=== PATIENT | female | born 1965 | race Caucasian/White ===

== ENCOUNTER 2017-07-02 14:13 | Inpatient (IN) | payer OTHER ==
[~2017-07-02] VITALS: Ht 144.8 cm; Wt 48.9 kg
[2017-08-04] MEDS ORDERED: CRESTOR20 MG PO (11:26)
[2017-08-04] MEDS ORDERED: MASON NATURAL1000 MG PO (11:27)
[2017-08-04] MEDS ORDERED: SYNTHROID0.125 MG/T PO (11:27)
[2017-08-04] MEDS ORDERED: HCTZ 25MG TAB25 MG PO (11:27)
[2017-08-04] MEDS ORDERED: MULTI VITAMINS1 TAB PO (11:27)
[2017-08-04] MEDS ORDERED: NAPROSYN500 MG PO (11:29)
[2017-08-04] MEDS ORDERED: PLAQUENIL 200M200 MG PO (11:30)
[2017-08-05] VITALS (10 sets, daily range): BP systolic 103–154; BP diastolic 64–90; PULSE 58–79; TEMP 97.2–98
[2017-08-05] MEDS ORDERED: VITAMIN D31000 I1 PO (10:57)
[2017-08-05] MEDS ORDERED: CALCIUM CARBON650 M2 PO (10:57)
[2017-08-05] MEDS ORDERED: WOMEN'S DAILY F1 TAB PO (10:57)
[2017-08-05] MEDS ORDERED: VITAMINE200 PO (10:58)
[2017-08-05] MEDS ORDERED: IBU800 M1 PO (10:58)
[2017-08-05] MEDS ORDERED: ARTIFICIAL TEAR15 M7 OP (10:59)
[2017-08-06 01:49] VITALS: BP 149/82; PULSE 64; TEMP 98
[2017-08-06 06:15] VITALS: BP 128/61; PULSE 83; TEMP 98.2
[2017-08-06 07:30] LABS: BASO % 0.2 % (0.0-2.0); GRAN # 12.2 (1.4-6.5); GRAN % 87.4 % (42.2-75.2); LYMPH # 0.8 (1.2-3.4); LYMPH % 5.4 % (20.0-51.0); MEAN CELL VOLUME 84 fl (80.0-100.0); MEAN CORPUSCULAR HGB CONC 32 g/dl (33.0-37.0); MEAN PLATELET VOLUME 11.8 fl (7.4-10.4); MONO # 0.9 (0.1-0.6); MONO % 6.4 % (1.7-9.3); PLATELET COUNT 202 K/mm3 (130-400); RED BLOOD COUNT 4.34 M/mm3 (4.10-5.30); REDCELL DISTRIBUTION WIDTH-CV 14.8 % (11.5-14.5)
[2017-08-06 07:37] LABS: HEMATOCRIT 36.6 % (37.0-47.0); HEMOGLOBIN 11.7 g/dl (12.5-16.0); MEAN CORPUSCULAR HEMOGLOBIN 27 pg (27.0-31.0)
[2017-08-06 07:46] LABS: CALCIUM 9.8 mg/dL (8.4-10.2); CREATININE, serum 0.7 mg/dL (0.52-1.25); POTASSIUM 4.5 mmol/L (3.4-5.0)
[2017-08-06 08:06] VITALS: BP 127/66; PULSE 66; TEMP 98.3
[2017-08-06 14:06] VITALS: BP 127/70; PULSE 63; TEMP 97.5
[2017-08-06 17:36] VITALS: BP 128/67; PULSE 66; TEMP 98.4
[2017-08-06 22:00] VITALS: BP 122/67; PULSE 99; TEMP 98.7
[2017-08-07 02:03] VITALS: BP 120/62; PULSE 87; TEMP 97.9
[2017-08-07 05:40] VITALS: BP 132/71; PULSE 97; TEMP 97.9
[2017-08-07 10:00] VITALS: BP 126/70; PULSE 92; TEMP 99.2
== END 2017-08-07 14:50 | disposition home or self-care (01) | DRG 658 ==
LOC: SURG 08-05 09:59 → INPTSU 08-05 09:59 → SURG 08-05 14:15
PROVIDERS: Urology
PROC: 8E0W4CZ Robotic Assisted Procedure of Trunk Region, Percutaneous Endoscopic Approach (ICD-10-PCS; 2017-08-05)
PROC: 0TB04ZZ Excision of Right Kidney, Percutaneous Endoscopic Approach (ICD-10-PCS; principal; 2017-08-05 14:15)
DX: C64.1 Malignant neoplasm of right kidney, except renal pelvis (principal); N39.3 Stress incontinence (female) (male); I10 Essential (primary) hypertension
CPT/HCPCS: A4315; A9284; C1713; J1100; J1170; J1956; J2405; J2704; J2710; J3010; J7120